=== PATIENT | male | born 1965 | race African-American/Black ===

== ENCOUNTER 2018-11-16 21:47 | Emergency (ER) | payer MEDICARE, OTHER ==
[~2018-11-16] VITALS: Ht 180.3 cm; Wt 108.9 kg
--- NOTE | 2018-11-16 22:36 | Diagnostic Imaging Report ---
HAND 2 VIEW RT - HOPD HISTORY: Right hand numbness. Mostly fingertips. COMPARISON: None available. FINDINGS: Bones: No acute displaced fracture. Osseous alignment is within normal limits. Joints: The joint spaces are well-maintained. Soft tissues: The soft tissues appear unremarkable. IMPRESSION: No acute radiographic abnormality. Signed by: DR. Walter Mullins MD on 11/16/2018 10:32 PM
== END 2018-11-16 22:54 | disposition home or self-care (01) ==
LOC: FSED 21:47
DX: M79.641 Pain in right hand (principal); M25.531 Pain in right wrist; E11.40 Type 2 diabetes mellitus with diabetic neuropathy, unspecified; I10 Essential (primary) hypertension
CPT/HCPCS: 99283